=== PATIENT | male | born 1995 | race Hispanic/Latino ===

== ENCOUNTER 2021-07-26 03:56 | Emergency (ER) | payer SELFPAY ==
[~2021-07-26] VITALS: Ht 160 cm; Wt 97.5 kg
[2021-07-26 03:58] VITALS: BP 143/76
== END 2021-07-26 05:43 | disposition left against medical advice (07) ==
LOC: EDH 03:56
DX: K08.89 Other specified disorders of teeth and supporting structures (principal); Z53.21 Procedure and treatment not carried out due to patient leaving prior to being seen by health care provider